=== PATIENT | female | born 1965 | race Caucasian/White ===

== ENCOUNTER 2016-12-19 02:07 | Emergency (ER) | payer OTHER ==
[~2016-12-19] VITALS: Ht 170.2 cm; Wt 68.0 kg
[2016-12-19] VITALS (7 sets, daily range): BP systolic 104–138; BP diastolic 68–84; PULSE 88–99; RESP 12–24; TEMP 98.1–98.2; O2SAT 96–99
[~2016-12-19 02:07] MED LIST: IBUP-232 PO; ZOFR4TAB PO
[2016-12-19 03:03] LABS: AUTOMATED NEUTROPHIL # 3.4 TH/MM3 (1.8-7.7); BASOPHIL # 0.1 TH/MM3 (0-0.2); BASOPHIL % 0.8 % (0.0-2.0); EOSINOPHIL # 0.1 TH/MM3 (0-0.4); HEMATOCRIT 38.9 % (35.0-46.0); HEMO FLAGS DIFF FINAL; LYMPH % 39.3 % (9.0-44.0); LYMPHOCYTE # 2.6 TH/MM3 (1.0-4.8); MEAN CELL VOLUME 89.3 FL (80.0-100.0); MEAN CORPUSCULAR HEMOGLOBIN 30.4 PG (27.0-34.0); MONO % 8.3 % (0.0-8.0); NEUT % 50.6 % (16.0-70.0); PLATELET COUNT 277 TH/MM3 (150-450); RED BLOOD COUNT 4.35 MIL/MM3 (4.00-5.30); RED CELL DISTRIBUTION WIDTH 14.6 % (11.6-17.2); WHITE BLOOD COUNT 6.7 TH/MM3 (4.0-11.0)
[2016-12-19 03:19] LABS: BLOOD, URINE NEG (NEG); COMMENT (UR) CULT NOT INDICATED; CULTURE IF INDICATED CULT NOT INDICATED; GLUCOSE,URINE NEG (NEG); KETONE, URINE NEG (NEG); NITRITE,URINE NEG (NEG); PH, URINE 5.5 (5.0-8.5); SQUAMOUS EPITHELIAL CELL URINE 3 /hpf (0-5); URINE COLOR LIGHT-YELLOW (YELLW/STRAW)
[2016-12-19 03:23] LABS: ALT (GPT) 48 U/L (10-53); ANION GAP 9 MEQ/L (5-15); AST (GOT) 36 U/L (15-37); BICARBONATE 22.9 MEQ/L (21.0-32.0); BLOOD UREA NITROGEN 5 MG/DL (7-18); CHLORIDE 108 MEQ/L (98-107); GLOMERULAR FILTRATION RATE 113 ML/MIN (>89); POTASSIUM 3.6 MEQ/L (3.5-5.1); SODIUM (NA) 140 MEQ/L (136-145)
[2016-12-19 03:25] LABS: ALKALINE PHOSPHATASE 51 U/L (45-117); TOTAL BILIRUBIN ADULT 0.8 MG/DL (0.2-1.0)
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
[2016-12-19 04:27] LABS: AMPHETAMINE, URINE NEG (NEG); BARBITURATES, URINE NEG (NEG); COCAINE, URINE POS (NEG)
[2016-12-19] MEDS ORDERED: chlordiazePOXIDE 25 MG CAP PO PRN ×2 (09:00→18:00)
== END 2016-12-19 18:34 ==
LOC: NEPA 02:07 → NEPJ 18:34
DX: F31.9 Bipolar disorder, unspecified (principal); F10.129 Alcohol abuse with intoxication, unspecified; Z72.0 Tobacco use; Z79.01 Long term (current) use of anticoagulants; Z86.2 Personal history of diseases of the blood and blood-forming organs and certain disorders involving the immune mechanism; Z86.59 Personal history of other mental and behavioral disorders; Z86.73 Personal history of transient ischemic attack (TIA), and cerebral infarction without residual deficits
CPT/HCPCS: 80053; 80307; 80320; 81001; 85025; 99284

== ENCOUNTER 2017-08-07 00:05 | Emergency (ER) | payer OTHER ==
[~2017-08-07] VITALS: Ht 170.2 cm; Wt 62.5 kg
[2017-08-07 00:10] VITALS: BP 93/72; PULSE 116; RESP 16; TEMP 98.6; O2SAT 100
[2017-08-07 00:54] LABS: AUTOMATED NEUTROPHIL # 4.2 TH/MM3 (1.8-7.7); BASOPHIL # 0.1 TH/MM3 (0-0.2); BASOPHIL % 0.9 % (0.0-2.0); EOSINOPHIL % 0.3 % (0.0-4.0); HEMATOCRIT 33.3 % (35.0-46.0); HEMO FLAGS DIFF FINAL; LYMPH % 28.1 % (9.0-44.0); LYMPHOCYTE # 1.8 TH/MM3 (1.0-4.8); MEAN CELL VOLUME 92.3 FL (80.0-100.0); MEAN CORPUSCULAR HEMOGLOBIN 31.4 PG (27.0-34.0); MONO % 5.1 % (0.0-8.0); NEUT % 65.6 % (16.0-70.0); PLATELET COUNT 287 TH/MM3 (150-450); RED BLOOD COUNT 3.61 MIL/MM3 (4.00-5.30); RED CELL DISTRIBUTION WIDTH 14.9 % (11.6-17.2); WHITE BLOOD COUNT 6.4 TH/MM3 (4.0-11.0)
[2017-08-07] MEDS ORDERED: TRAZ100T6 PO (00:54)
[2017-08-07] MEDS ORDERED: PAXI25TA5 PO (00:54)
[2017-08-07] MEDS ORDERED: ZYPR10TA PO (00:54)
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
[2017-08-07 01:20] LABS: ALT (GPT) 39 U/L (10-53); ANION GAP 7 MEQ/L (5-15); AST (GOT) 32 U/L (15-37); BICARBONATE 23.9 MEQ/L (21.0-32.0); BLOOD UREA NITROGEN 5 MG/DL (7-18); CHLORIDE 112 MEQ/L (98-107); GLOMERULAR FILTRATION RATE 94 ML/MIN (>89); POTASSIUM 3.7 MEQ/L (3.5-5.1); SODIUM (NA) 143 MEQ/L (136-145)
[2017-08-07 01:22] LABS: ALKALINE PHOSPHATASE 53 U/L (45-117); TOTAL BILIRUBIN ADULT 0.3 MG/DL (0.2-1.0)
[2017-08-07 01:30] LABS: ALCOHOL 190 MG/DL (0-5)
[2017-08-07 04:00] VITALS: BP 98/74; PULSE 80; RESP 16; TEMP 98.2; O2SAT 98
[2017-08-07 08:00] VITALS: BP 106/70; PULSE 72; RESP 16; O2SAT 99
[2017-08-07 12:00] VITALS: BP 104/78; PULSE 78; RESP 16; O2SAT 98
[2017-08-07 18:14] VITALS: BP 102/56; PULSE 78; RESP 17; TEMP 98.2; O2SAT 99
[2017-08-07] MEDS ORDERED: traZODone HCL 100 MG TAB PO SCH (21:00)
[2017-08-07 22:05] VITALS: BP 104/67; PULSE 63; RESP 18; O2SAT 97
[2017-08-08 02:00] VITALS: BP 97/60; PULSE 69; RESP 18
[2017-08-08 08:36] VITALS: BP 93/50; PULSE 77; RESP 17; O2SAT 98
--- NOTE | 2017-08-08 13:03 | PD ---
Physical Exam Date Seen by Provider: Aug 08, 2017 Time Seen by Provider: 13:02 Narrative 51-year-old female presented brought in under the Lo act and medically cleared, has been evaluated by the psychiatrist and found to be psychiatrically stable for discharge. This plan is for the patient to follow with [facility] on an outpatient basis. She continues to be medically stable for discharge at this time. Data Data Last Documented VS Vital Signs Date Time Temp Pulse Resp B/P (MAP) Pulse Ox O2 Delivery O2 Flow Rate FiO2 08/08/17 08:36 77 17 93/50 (64) 98 08/07/17 18:14 98.2 08/07/17 12:00 Room Air Orders Orders Complete Blood Count With Diff (08/07/17 00:16) Comprehensive Metabolic Panel (08/07/17 00:16) Psych Screen (08/07/17 00:16) Drug Screen, Random Urine (08/07/17 00:16) Alcohol (Ethanol) (08/07/17 00:16) Diet Regular Basic (08/07/17 Lunch) Diet Regular Basic (08/07/17 Dinner) Trazodone (Desyrel) (08/07/17 21:00) Diet Regular Basic (08/08/17 Breakfast) Diet Regular Basic (08/08/17 Lunch) Labs Laboratory Tests Test 08/07/17 00:40 08/08/17 06:25 White Blood Count 6.4 TH/MM3 Red Blood Count 3.61 MIL/MM3 Hemoglobin 11.3 GM/DL Hematocrit 33.3 % Mean Corpuscular Volume 92.3 FL Mean Corpuscular Hemoglobin 31.4 PG Mean Corpuscular Hemoglobin Concent 34.0 % Red Cell Distribution Width 14.9 % Platelet Count 287 TH/MM3 Mean Platelet Volume 7.2 FL Neutrophils (%) (Auto) 65.6 % Lymphocytes (%) (Auto) 28.1 % Monocytes (%) (Auto) 5.1 % Eosinophils (%) (Auto) 0.3 % Basophils (%) (Auto) 0.9 % Neutrophils # (Auto) 4.2 TH/MM3 Lymphocytes # (Auto) 1.8 TH/MM3 Monocytes # (Auto) 0.3 TH/MM3 Eosinophils # (Auto) 0.0 TH/MM3 Basophils # (Auto) 0.1 TH/MM3 CBC Comment DIFF FINAL Differential Comment Blood Urea Nitrogen 5 MG/DL Creatinine 0.67 MG/DL Random Glucose 84 MG/DL Total Protein 7.8 GM/DL Albumin 3.6 GM/DL Calcium Level 8.5 MG/DL Alkaline Phosphatase 53 U/L Aspartate Amino Transf (AST/SGOT) 32 U/L Alanine Aminotransferase (ALT/SGPT) 39 U/L Total Bilirubin 0.3 MG/DL Sodium Level 143 MEQ/L Potassium Level 3.7 MEQ/L Chloride Level 112 MEQ/L Carbon Dioxide Level 23.9 MEQ/L Anion Gap 7 MEQ/L Estimat Glomerular Filtration Rate 94 ML/MIN Ethyl Alcohol Level 190 MG/DL Urine Opiates Screen NEG Urine Barbiturates Screen POS Urine Amphetamines Screen NEG Urine Benzodiazepines Screen NEG Urine Cocaine Screen POS Urine Cannabinoids Screen NEG MDM Medical Record Reviewed: Yes Supervised Visit with TAMIKO: Yes Narrative Course 51-year-old female presented brought in under the [employer] act and medically cleared, has been evaluated by the psychiatrist and found to be psychiatrically stable for discharge. This plan is for the patient to follow with [facility] on an outpatient basis. She continues to be medically stable for discharge at this time. Diagnosis Primary Impression: Abrasion of left wrist Qualified Codes: S60.812A - Abrasion of left wrist, initial encounter Additional Impression: Encounter for medical screening examination Referrals: [facility] (Out patient) Patient Instructions: General Instructions Disposition: 01 DISCHARGE HOME Condition: Stable Eitan Nur Aug 08, 2017 13:03
--- NOTE | 2017-08-08 13:14 | PD.PSY.CON ---
Provisional Diagnosis Admission Date [place] I. 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 It essentially states Liz cut her wrist with a screwdriver she stated she did it to take the pain away from what was hurting her on the inside. Patient is seen screened in the ED blood alcohol level of 190 here toxicology positive for barbiturates and cocaine. Of interest upon review of EMR patient has urine toxicology testing going back to 2001 there is a consistency with positive toxicology for cocaine in a consistency from blood alcohol levels well over 200. Patient states she does remember me from contact to [place] a number of years ago. Patient states she is upset with the breakup of relationship with her boyfriend that occurred that night he left her for a new girlfriend. She became upset it appears she was pestering them and the new girlfriend told her to stop bothering them. Patient then started drinking using the cocaine taking barbiturates that she got from a neighbor. Patient denies suicidality homicidality voices or visions. Says her alcohol use is episodic as is her cocaine use. 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 The small abrasions on her left volar wrist by the screwdriver needed no significant attention. In any event at the present time patient does denies suicidality. Able contracted to no harm. Is making what appears to be November effort to maintain sobriety though I question her success rate with that. However at this time patient no longer meets Lo act criteria I'll lift the katena act as okay by psych for discharge next medically clear and stable. The been no Rx by me. Patient states she is still a compliant with [facility] acted does see a nurse practitioner there. She should call that clinician this week with a follow-up appointment and perhaps be returned to his psychotropic medications. Also referral to AA/NA Review of Systems Constitutional: DENIES: Diaphoretic episodes, Fatigue, Fever, Weight gain, Weight loss, Chills, Dizziness, Change in appetite, Night Sweats Endocrine: DENIES: Abnorml menstrual pattern, Heat/cold intolerance, Polydipsia , Polyuria, Polyphagia Eyes: DENIES: Blurred vision, Diplopia, Eye inflammation, Eye pain, Vision loss , Photosensitivity, Double Vision Ears, nose, mouth, throat: DENIES: Tinnitus, Hearing loss, Vertigo, Nasal discharge, Oral lesions, Throat pain, Hoarseness, Ear Pain, Running Nose, Epistaxis, Sinus Pain, Toothache, Odynophagia Respiratory: DENIES: Apneas, Cough, Snoring, Wheezing, Hemoptysis, Sputum production, Shortness of breath Cardiovascular: DENIES: Chest pain, Palpitations, Syncope, Dyspnea on Exertion , PND, Lower Extremity Edema, Orthopnea, Claudication Gastrointestinal: DENIES: Abdominal pain, Black stools, Bloody stools, Constipation, Diarrhea, Nausea, Vomiting, Difficulty Swallowing, Anorexia Genitourinary: DENIES: Abnormal vaginal bleeding, Dysmenorrhea, Dyspareunia, Sexual dysfunction, Urinary frequency, Urinary incontinence, Urgency, Hematuria , Dysuria, Nocturia, Vaginal discharge Musculoskeletal: DENIES: Joint pain, Muscle aches, Stiffness, Joint Swelling, Back pain, Neck pain Integumentary: DENIES: Abnormal pigmentation, Pruritus, Rash, Nail changes, Breast masses, Breast skin changes, Nipple discharge Hematologic/lymphatic: DENIES: Bruising, Lymphadenopathy Immunologic/allergic: DENIES: Eczema, Urticaria Neurologic: DENIES: Abnormal gait, Headache, Localized weakness, Paresthesias, Seizures, Speech Problems, Tremor, Poor Balance Psychiatric: COMPLAINS OF: Anxiety, Suicidal Ideation Past Family Social History Coded Allergies: haloperidol (Unverified Allergy, Severe, TONGUE SWELLING, 08/08/17) Per pt. penicillin G (Unverified Allergy, Unknown, 08/08/17) Per pt. Past Medical History Medically cleared ED Reported Medications Trazodone (Trazodone) 100 Mg Tablet, 200 MG PO HS for Control Depression, #30 TAB 0 Refills 08/07/17 Paroxetine ER (Paxil CR) 25 Mg Tab, 100 MG PO DAILY, #30 TAB 0 Refills 08/07/17 Discontinued Reported Medications Olanzapine (Zyprexa) 10 Mg Tab, 30 MG PO DAILY, #30 TAB 0 Refills 08/07/17 Current Medications Medications (Trade) Dose Ordered Sig/Michelle Route Start Time Stop Time Status Last Admin (Desyrel) 200 mg HS PO 08/07/17 21:00 08/07/17 21:55 Family Psych History Patient denies Social History Patient just broke up with boyfriend continues active alcoholic cocaine abuser Patient's Strengths (min. 2) Patient verbal able access healthcare Physical Exam Patient medically cleared ED exam reviewed and agreed with Vital Signs Vital Signs Date Time Temp Pulse Resp B/P (MAP) Pulse Ox O2 Delivery O2 Flow Rate FiO2 08/08/17 08:36 77 17 93/50 (64) 98 08/07/17 18:14 98.2 08/07/17 12:00 Room Air Lab Results Test 08/08/17 06:25 Urine Opiates Screen NEG Urine Barbiturates Screen POS Urine Amphetamines Screen NEG Urine Benzodiazepines Screen NEG Urine Cocaine Screen POS Urine Cannabinoids Screen NEG Mental Status Examination Appearance: Appropriate Consciousness: Alert Orientation: x4 Motor Activity: Normal gait Speech: Pressured, Rapid Language: Adequate Fund of Knowledge: Adequate Attention and Concentration: Adequate Memory: Unremarkable Mood: Other (euthymic is somewhat intense) Affect: Other (increase range and intensity) Thought Process & Associations: Intact, Tangential (mildly) Thought Content: Ideas of reference (vague) Hallucination Type: None Delusion Type: None Suicidal Ideation: No Suicidal Plan: No Suicidal Intention: No Homicidal Ideation: No Homicidal Plan: No Homicidal Intention: No Insight: Fair Judgment: Impulsive Assessment & Plan Problem List: (1) Cocaine abuse ICD Codes: F14.10 - Cocaine abuse, uncomplicated (2) Alcohol abuse with intoxication ICD Codes: F10.129 - Alcohol abuse with intoxication, unspecified (3) Adjustment disorder with mixed disturbance of emotions and conduct ICD Codes: F43.25 - Adjustment disorder with mixed disturbance of emotions and conduct Assessment & Plan Estimated LOS: days this time patient does not meet Lo criteria will lift Teresita act. Okay by psych for discharge for medical clearance stable. No Rx by me. Referral to AA/NA, referral to [facility] further mental health assessment, and substance abuse treatment Discharge Planning See above Jaden Roy MD Aug 08, 2017 13:14
== END 2017-08-08 14:15 | disposition home or self-care (01) ==
LOC: NEPC 00:05 → NEPJ 08-08 14:15
DX: S60.812A Abrasion of left wrist, initial encounter (principal); F10.129 Alcohol abuse with intoxication, unspecified; X78.9XXA Intentional self-harm by unspecified sharp object, initial encounter; Y90.6 Blood alcohol level of 120-199 mg/100 ml
CPT/HCPCS: 80053; 80307; 85025; 99284

== ENCOUNTER 2017-11-01 15:08 | Emergency (ER) | payer SELFPAY ==
[~2017-11-01] VITALS: Ht 170.2 cm; Wt 60.0 kg
[~2017-11-01 15:08] MED LIST changes: -IBUP-232 PO; +PARO25CR PO; +TRAZ100T10 PO; -ZOFR4TAB PO
[2017-11-01 15:10] VITALS: BP 128/72; PULSE 122; RESP 24; TEMP 103.2; O2SAT 96
[2017-11-01 15:29] VITALS: BP 130/76; PULSE 111; RESP 33; TEMP 103.2; O2SAT 98
[2017-11-01] MEDS ORDERED: HYDROcodone 5 MG/HOMATROPINE 1.5 MG SYRUP 5 ML CUP PO ONE (15:30)
[2017-11-01] MEDS ORDERED: RESP: ALBUTEROL 2.5 MG/IPRATROPIUM 0.5 MG NEB (SCH) INH ONE (15:30)
[2017-11-01] MEDS ORDERED: KETOROLAC TROMETHAMINE 60 MG/2 ML (IM) VIAL IM ONE (15:30)
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
[2017-11-01] MEDS ORDERED: VENTAER INH (16:17)
[2017-11-01] MEDS ORDERED: MEDR4PAK PO (16:17)
[2017-11-01] MEDS ORDERED: GUAISYP4 PO (16:17)
[2017-11-01] MEDS ORDERED: OSEL75 PO (16:17)
--- NOTE | 2017-11-01 16:28 | RADRPT ---
EXAM DATE/TIME: 11/01/2017 15:51 [place] COMPARISON: No previous studies available for comparison. INDICATIONS : Cough MEDICAL HISTORY : Cerebrovascular disease. SURGICAL HISTORY : Hysterectomy. ENCOUNTER: Initial ACUITY: 1 day PAIN SCORE: 0/10 LOCATION: Bilateral chest FINDINGS: The lungs are clear without infiltrate, nodule, or mass. There is no appreciable pleural effusion fo r technique. Heart and mediastinum are unremarkable. CONCLUSION: No acute cardiopulmonary disease. Radha Weiner MD on November 01, 2017 at 16:25 Board Certified Radiologist. This report was verified electronically.
== END 2017-11-01 16:41 | disposition home or self-care (01) ==
LOC: NEPE 15:08
DX: J11.1 Influenza due to unidentified influenza virus with other respiratory manifestations (principal); J98.01 Acute bronchospasm; D64.9 Anemia, unspecified; F31.9 Bipolar disorder, unspecified; Z86.73 Personal history of transient ischemic attack (TIA), and cerebral infarction without residual deficits; F20.9 Schizophrenia, unspecified; F17.200 Nicotine dependence, unspecified, uncomplicated; Z79.899 Other long term (current) drug therapy; Z88.8 Allergy status to other drugs, medicaments and biological substances
CPT/HCPCS: 71046; 87804; 94664; 96372; 99284; J1885

== ENCOUNTER 2018-01-03 02:51 | Emergency (ER) | payer OTHER ==
[~2018-01-03] VITALS: Ht 170.2 cm; Wt 50.0 kg
[~2018-01-03 02:51] MED LIST changes: +GUAISYP4 PO; +MEDR4PAK PO; +OSEL75 PO; -PARO25CR PO; -TRAZ100T10 PO; +VENTAER INH
[2018-01-03 03:01] VITALS: PULSE 75; RESP 18; O2SAT 97
[2018-01-03] MEDS ORDERED: TRAZ50TA12 PO (03:08)
[2018-01-03] MEDS ORDERED: PAXI30TA7 PO (03:08)
[2018-01-03 03:51] LABS: AUTOMATED NEUTROPHIL # 2.8 TH/MM3 (1.8-7.7); BASOPHIL # 0.1 TH/MM3 (0-0.2); BASOPHIL % 1.3 % (0.0-2.0); EOSINOPHIL % 0.7 % (0.0-4.0); HEMATOCRIT 40.6 % (35.0-46.0); HEMOGLOBIN 13.4 GM/DL (11.6-15.3); LYMPH % 39.5 % (9.0-44.0); LYMPHOCYTE # 2.1 TH/MM3 (1.0-4.8); MEAN CELL VOLUME 85.3 FL (80.0-100.0); MEAN CORPUSCULAR HEMOGLOBIN 28.1 PG (27.0-34.0); MEAN CORPUSCULAR HGB CONC 32.9 % (32.0-36.0); MONO % 6.8 % (0.0-8.0); MONOCYTE # 0.4 TH/MM3 (0-0.9); NEUT % 51.7 % (16.0-70.0); PLATELET COUNT 384 TH/MM3 (150-450); RED BLOOD COUNT 4.76 MIL/MM3 (4.00-5.30); RED CELL DISTRIBUTION WIDTH 17.3 % (11.6-17.2); WHITE BLOOD COUNT 5.3 TH/MM3 (4.0-11.0)
[2018-01-03 04:08] LABS: ALBUMIN 3.5 GM/DL (3.4-5.0); ALT (GPT) 27 U/L (10-53); AST (GOT) 27 U/L (15-37); BICARBONATE 28.2 MEQ/L (21.0-32.0); BLOOD UREA NITROGEN 4 MG/DL (7-18); CALCIUM 8.1 MG/DL (8.5-10.1); CHLORIDE 110 MEQ/L (98-107); CREATININE 0.59 MG/DL (0.50-1.00); GLOMERULAR FILTRATION RATE 108 ML/MIN (>89); GLUCOSE,RANDOM 91 MG/DL (74-106); SODIUM (NA) 143 MEQ/L (136-145)
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
[2018-01-03 04:18] LABS: ALKALINE PHOSPHATASE 73 U/L (45-117); TOTAL BILIRUBIN ADULT 0.4 MG/DL (0.2-1.0); TOTAL PROTEIN 7.8 GM/DL (6.4-8.2)
[2018-01-03] MEDS ORDERED: POTASSIUM CHLORIDE 20 MEQ CONTROLLED RELEASE TAB PO ONE (04:45)
[2018-01-03 07:02] VITALS: BP 130/82; PULSE 82; RESP 16; O2SAT 96
[2018-01-03 11:01] VITALS: BP 136/76; PULSE 76; RESP 22; O2SAT 100
[2018-01-03] MEDS ORDERED: ZYPR10TA PO (11:03)
[2018-01-03 13:16] LABS: BACTERIA, URINE FEW /hpf; BILIRUBIN, URINE NEG (NEG); BLOOD, URINE NEG (NEG); GLUCOSE,URINE NEG (NEG); KETONE, URINE NEG (NEG); MUCUS URINE FEW /lpf (OCC); NITRITE,URINE POS (NEG); SQUAMOUS EPITHELIAL CELL URINE 9 /hpf (0-5); URINE COLOR YELLOW (YELLW/STRAW); URINE LEUKOCYTE ESTERASE SMALL (NEG)
[2018-01-03 18:00] VITALS: BP 134/93; PULSE 78; RESP 18; O2SAT 97
[2018-01-04] MEDS ORDERED: MACR100C2 PO (01:55)
[2018-01-04] MEDS ORDERED: NITROFURANTOIN MONOHYD MACROCR 100 MG CAP PO ONE (02:00)
[2018-01-04 02:13] VITALS: BP 142/75; PULSE 66; RESP 17; O2SAT 98
[2018-01-04 10:10] VITALS: BP 137/84; PULSE 74; RESP 18
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
--- NOTE | 2018-01-04 11:35 | PD ---
Physical Exam Time Seen by Provider: 11:35 LUKAS Harris has evaluated the patient, lifted Lo act and cleared the patient for discharge. Data Data Last Documented VS Vital Signs Date Time Temp Pulse Resp B/P (MAP) Pulse Ox O2 Delivery O2 Flow Rate FiO2 01/04/18 11:08 01/04/18 10:10 74 18 01/04/18 02:13 98 Room Air Orders Orders Complete Blood Count With Diff (01/03/18 03:25) Comprehensive Metabolic Panel (01/03/18 03:25) Thyroid Stimulating Hormone (01/03/18 03:25) Urinalysis - C+S If Indicated (01/03/18 03:25) Ed Urine Pregnancytest Poc (01/03/18 03:25) Psych Screen (01/03/18 03:25) Drug Screen, Random Urine (01/03/18 03:25) Alcohol (Ethanol) (01/03/18 03:25) Potassium Chloride (Kcl) (01/03/18 04:45) Diet Heart Healthy (01/03/18 Breakfast) Urine Culture (01/03/18 12:50) Diet Regular Basic (01/03/18 Dinner) Nitrofurantoin Monohyd Macrocr (Macrobid (01/04/18 02:00) Diet Regular Basic (01/04/18 Breakfast) Diet Regular Basic (01/04/18 Lunch) Ed Discharge Order (01/04/18 11:33) Labs Laboratory Tests Test 01/03/18 03:15 01/03/18 12:50 White Blood Count 5.3 TH/MM3 Red Blood Count 4.76 MIL/MM3 Hemoglobin 13.4 GM/DL Hematocrit 40.6 % Mean Corpuscular Volume 85.3 FL Mean Corpuscular Hemoglobin 28.1 PG Mean Corpuscular Hemoglobin Concent 32.9 % Red Cell Distribution Width 17.3 % Platelet Count 384 TH/MM3 Mean Platelet Volume 7.0 FL Neutrophils (%) (Auto) 51.7 % Lymphocytes (%) (Auto) 39.5 % Monocytes (%) (Auto) 6.8 % Eosinophils (%) (Auto) 0.7 % Basophils (%) (Auto) 1.3 % Neutrophils # (Auto) 2.8 TH/MM3 Lymphocytes # (Auto) 2.1 TH/MM3 Monocytes # (Auto) 0.4 TH/MM3 Eosinophils # (Auto) 0.0 TH/MM3 Basophils # (Auto) 0.1 TH/MM3 CBC Comment DIFF FINAL Differential Comment Blood Urea Nitrogen 4 MG/DL Creatinine 0.59 MG/DL Random Glucose 91 MG/DL Total Protein 7.8 GM/DL Albumin 3.5 GM/DL Calcium Level 8.1 MG/DL Alkaline Phosphatase 73 U/L Aspartate Amino Transf (AST/SGOT) 27 U/L Alanine Aminotransferase (ALT/SGPT) 27 U/L Total Bilirubin 0.4 MG/DL Sodium Level 143 MEQ/L Potassium Level 3.1 MEQ/L Chloride Level 110 MEQ/L Carbon Dioxide Level 28.2 MEQ/L Anion Gap 5 MEQ/L Estimat Glomerular Filtration Rate 108 ML/MIN Thyroid Stimulating Hormone 3rd Gen 2.260 uIU/ML Ethyl Alcohol Level 191 MG/DL Urine Color YELLOW Urine Turbidity HAZY Urine pH 7.0 Urine Specific [place] 1.016 Urine Protein TRACE mg/dL Urine Glucose (UA) NEG mg/dL Urine Ketones NEG mg/dL Urine Occult Blood NEG Urine Nitrite POS Urine Bilirubin NEG Urine Urobilinogen LESS THAN 2.0 MG/DL Urine Leukocyte Esterase SMALL Urine RBC 2 /hpf Urine WBC 22 /hpf Urine Squamous Epithelial Cells 9 /hpf Urine Bacteria FEW /hpf Urine Mucus FEW /lpf Microscopic Urinalysis Comment CULTURE INDICATED Urine Opiates Screen NEG Urine Barbiturates Screen NEG Urine Amphetamines Screen NEG Urine Benzodiazepines Screen NEG Urine Cocaine Screen POS Urine Cannabinoids Screen NEG MDM Supervised Visit with TAMIKO: No Narrative Course LUKAS Rowe has evaluated the patient, lifted Teresita mabry and cleared the patient for discharge. Patient contracts safety. Denies suicidal or homicidal ideations. [facility] will be provided [facility]. Has friends and family for support. Patient was medically cleared by alternate provider prior to psych screening. Patient has been evaluated by psychiatry and and is now cleared for discharge. Diagnosis Primary Impression: Alcohol abuse with intoxication Additional Impressions: Bipolar 1 disorder Cocaine abuse Referrals: ERIC (Out patient) [facility] Primary Care Physician Psychiatrist [facility] Patient Instructions: General Instructions Departure Forms: Tests/Procedures Additional Instruction: Contract safety to your self and others Stop using drugs Follow-up with psychiatry Follow-up with primary care provider Follow-up with Jeremias Mathews Return to the emergency department immediately with worsening of symptoms Med/Other Pt SpecificInfo: No Change to Meds, No Meds Exist/No RX given Scripts Nitrofurantoin Monohydrate Macrocrystals (Macrobid) 100 Mg Cap 100 MG PO BID for Infection for 7 Days, #14 CAP 0 Refills Prov: Madan Treviño MD 01/04/18 Disposition: 01 DISCHARGE HOME Condition: Stable Maria Elena Francisco [facility] Jan 04, 2018 11:35
== END 2018-01-04 11:52 | disposition home or self-care (01) ==
LOC: NEPD 02:51 → NEPJ 01-04 11:52
DX: F10.129 Alcohol abuse with intoxication, unspecified (principal); F19.10 Other psychoactive substance abuse, uncomplicated; F31.9 Bipolar disorder, unspecified; N39.0 Urinary tract infection, site not specified; D64.9 Anemia, unspecified; F14.10 Cocaine abuse, uncomplicated; Z72.0 Tobacco use; Y90.6 Blood alcohol level of 120-199 mg/100 ml; Z79.01 Long term (current) use of anticoagulants; B96.20 Unspecified Escherichia coli [E. coli] as the cause of diseases classified elsewhere; Z79.899 Other long term (current) drug therapy
CPT/HCPCS: 80053; 80307; 81001; 84443; 84703; 85025; 87077; 87086; 87186; 99284

== ENCOUNTER 2018-03-19 02:45 | Emergency (ER) | payer SELFPAY ==
[~2018-03-19] VITALS: Ht 167.6 cm; Wt 56.0 kg
[~2018-03-19 02:45] MED LIST changes: +MACR100C2 PO; -MEDR4PAK PO; -OSEL75 PO; +PAXI30TA7 PO; +TRAZ50TA12 PO; +ZYPR10TA PO
[2018-03-19 02:48] VITALS: BP 124/70; PULSE 89; RESP 15; TEMP 97.5; O2SAT 97
[2018-03-19] MEDS ORDERED: VIST25CA PO (02:57)
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
== END 2018-03-19 06:50 | disposition home or self-care (01) ==
LOC: NEPC 02:45
DX: T40.601A Poisoning by unspecified narcotics, accidental (unintentional), initial encounter (principal); R51 Headache; F11.20 Opioid dependence, uncomplicated; R11.0 Nausea; F31.9 Bipolar disorder, unspecified; Z79.01 Long term (current) use of anticoagulants; Z72.0 Tobacco use
CPT/HCPCS: 99281